=== PATIENT | female | born 1990 | race Caucasian/White ===

== ENCOUNTER 2020-08-09 02:00 | Emergency (ER) | payer SELFPAY ==
[2020-08-09] MEDS ORDERED: Sodium Chloride 0.9% 10 ML Syringe FLUSH PRN (02:01)
[2020-08-09] MEDS ORDERED: Sodium Chloride 0.9% 2.5 ML Syringe FLUSH PRN (02:01)
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
[2020-08-09 02:45] LABS: BLOOD UREA NITROGEN,BUN 7 mg/dL (7.0-18.0); CARBON DIOXIDE,CO2 20.4 mmol/L (21.0-32.0); CHLORIDE,CL 102 mmol/L (98-107); GLUCOSE RANDOM 116 mg/dL (74-106); POTASSIUM,K 3.5 mmol/L (3.5-5.1); SODIUM,NA 139 mmol/L (136-145)
[2020-08-09] MEDS ORDERED: Lactated Ringers 1,000 ML IV STA (02:47)
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
== END 2020-08-09 04:06 | disposition home or self-care (01) ==
LOC: MW.ED 02:00
DX: S82.832A Other fracture of upper and lower end of left fibula, initial encounter for closed fracture (principal); S30.0XXA Contusion of lower back and pelvis, initial encounter; S80.01XA Contusion of right knee, initial encounter; F10.129 Alcohol abuse with intoxication, unspecified; R07.89 Other chest pain; E66.9 Obesity, unspecified; Y90.8 Blood alcohol level of 240 mg/100 ml or more; X58.XXXA Exposure to other specified factors, initial encounter
CPT/HCPCS: 29505; 36415; 70450; 71045; 72125; 73562; 80053; 80305; 80307; 81001; 81025; 82550; 83735; 84100; 85025; 85610; 93005; 99285; J7120; 93010; 99283